=== PATIENT | female | born 1980 | race Caucasian/White ===

== ENCOUNTER 2023-09-02 17:16 | Outpatient (CLI) | payer OTHER, SELFPAY | END 2023-09-02 17:17 | disposition home or self-care (01) | PROVIDERS: PCP Family Medicine; Visit Provider Family Medicine | DX: Z13.220 Encounter for screening for lipoid disorders (principal); Z13.228 Encounter for screening for other metabolic disorders | CPT/HCPCS: 80053; 80061 ==

== ENCOUNTER 2024-11-05 10:05 | Outpatient (CLI) | payer OTHER, SELFPAY | END 2024-11-05 10:06 | disposition home or self-care (01) | LOC: LKVREF 10:06 | PROVIDERS: PCP Family Medicine; Visit Provider Family Medicine | DX: F90.9 Attention-deficit hyperactivity disorder, unspecified type (principal); G89.29 Other chronic pain; K21.9 Gastro-esophageal reflux disease without esophagitis; E66.9 Obesity, unspecified; M54.9 Dorsalgia, unspecified; G43.909 Migraine, unspecified, not intractable, without status migrainosus; Z79.899 Other long term (current) drug therapy | CPT/HCPCS: 80053; 80061 ==

== ENCOUNTER 2025-06-10 09:15 | Outpatient (CLI) | payer OTHER, SELFPAY | END 2025-06-10 09:16 | disposition home or self-care (01) | LOC: LKVREF 09:15 | PROVIDERS: PCP Family Medicine; Visit Provider Family Medicine | DX: E78.00 Pure hypercholesterolemia, unspecified (principal) | CPT/HCPCS: 80061; 80076 ==